=== PATIENT | female | born 1990 | race Caucasian/White ===

== ENCOUNTER 2018-03-07 08:00 | Inpatient (IN) ==
[2018-03-07] MEDS ORDERED: miSOPROStol 25 MCG TABLET PO PRN (08:10)
[2018-03-07] MEDS ORDERED: Ondansetron 4 MG/2 ML VIAL IVP PRN (08:10)
[2018-03-07] MEDS ORDERED: Naloxone 0.4 MG/ML INJ IVP PRN (08:10)
[2018-03-07] MEDS ORDERED: Famotidine 20 MG/2 ML VIAL IVP PRN (08:10)
[2018-03-07] MEDS ORDERED: Ringers Solution, Lactated 1,000 ML IVC SCH (08:15)
[2018-03-07] MEDS ORDERED: *HR* Labetalol 20 MG/4 ML SYRINGE IVP ONE ×5 (08:31→18:52)
[2018-03-07 09:10] LABS: Basophils % 0.3 %; Eosinophils # 0.1 K/mcL (0.0-0.6); Eosinophils % 0.6 %; Hematocrit 37.6 % (35.3-44.9); Hemoglobin 12.4 g/dL (11.5-15.4); Immature Granulocytes % 0.5 % (0-4); Lymphocytes # 2.5 K/mcL (0.6-4.6); Lymphocytes % 22.5 %; Mean Corpuscular Hemoglobin 26.4 pg (28.0-33.3); Mean Platelet Volume 12.2 fL (9.4-12.4); Monocytes # 0.4 K/mcL (0.0-1.3); Monocytes % 3.9 %; Neutrophils # 7.9 K/mcL (1.6-8.9); Platelet Count 196 K/mcL (140-400); Red Cell Distribution Width 14.8 % (11.5-14.5); Segmented Neutrophils % 72.2 %
[2018-03-07 09:28] LABS: Protein/Creatinine Ratio,Urine 0.66 mg/mg (0.00-0.20)
[2018-03-07 09:29] LABS: Alanine Aminotransferase 7 Units/L (7-52); Aspartate Amino Transferase 12 Units/L (13-39); BUN/Creatinine Ratio 13 (6-26); Blood Urea Nitrogen 6 mg/dL (6-20); Lactate Dehydrogenase 169 Units/L (140-271); Uric Acid 3.6 mg/dL (2.3-7.6); eGFR For Non-African Americans > 60 (> 60)
[2018-03-07 09:50] LABS: Amphetamine Screen,Urine Negative ng/mL (Cutoff=1000); Barbiturate Screen,Urine Negative ng/mL (Cutoff=200); Benzodiazepines Screen,Urine Negative ng/mL (Cutoff=200); Cannabinoid Screen,Urine Negative ng/mL (Cutoff = 50); Cocaine Screen,Urine Negative ng/mL (Cutoff= 300); Opiate Screen,Urine Negative ng/mL (Cutoff=300); Phencyclidine Screen,Urine Negative ng/mL (Cutoff=25)
--- NOTE | 2018-03-07 13:03 | OB/GYN History & Physical ---
Date of Encounter: 03/07/18 Time of Encounter: 13:01 Assessment and Plan (1) 39 weeks gestation of Current visit: Yes Status: Acute (2) Chronic hypertension affecting Current visit: Yes Status: Acute Pt's bp's are markedly elevated today, no s/sx's of PIH. PIH labs are normal. Will cover BP's as needed. History of Present Illness Chief complaint: Here for induction of labor HPI: Ms. Oliveira is a 27 year old female female presents for induction of labor. On arrival she reports irregular uc's, no vb or lof. She has h/o chronic HTN since age 17. On arrival she denies PIH sx's of headache, scotomata, RUQ pain or n/v or swelling. Past Med Surg Social Fam HX - Past Medical History Source: patient, old records reviewed Medical history: hypertension, migraine Additional medical history: atherosclerosis of renal artery, OCD, impaired fasting glucose, vitamin D deficiency Psychiatric history: other - Past Surgical History Additional surgical history: DNC - Social History Smoking Status: Never smoker Smokeless Tobacco Status: No Alcohol use: none Drug use: none - Family History Mother Name: Fern Herrera Age: 43 Family Member Ethnicity: Non- Living Status: Still Living Hx Family Cardiac Disorders: Yes Hx Family Respiratory Disorders: No Hx Family Cancer: No Hx Family GI Disorders: No Hx Family Genitourinary Disorders: No Hx Family Endocrine Disorder: No Hx Family Musculoskeletal Disorders: No Hx Family Neuromuscular Disorders: No Hx Family Neurologic Disorders: No Hx Family HEENT Disorders: No Hx Family Autoimmune Disorders: No Hx Family Reproductive Disorders: No Hx Family Psychosocial Disorders: No Hx Family Medical Disorders: No Obstetrical History - Pregnancies : 2 Medications and Allergies Labetalol [Trandate] 100 mg PO BID #28 tablet 07/23/17 [Rx] One Daily Tablet 1 tab PO DAILY 03/07/18 [History] Allergy/AdvReac Type Severity Reaction Status Date / Time No Known Allergies Allergy Verified 04/22/16 21:06 Exam - Constitutional Constitutional: well developed, well nourished - HEENT HEENT: EOMI, PERRL - Neck Neck exam: full ROM - Lungs Respiratory exam: accessory muscle use - Cardiovascular Cardiovascular exam: RRR - Abdomen Abdomen: Present: gravid, non tender - Extremities Deep Tendon Reflex Grade: 2+ Normal - Cervix Dilation: 2 Effacement: 70 Station: -2 - Uterus Uterus exam: Present: enlarged Results Result Diagrams: 03/07/18 08:35 03/07/18 08:35 Abnormal lab results MCV 80.0 fL (83.0-100.0) L 03/07/18 08:35 MCH 26.4 pg (28.0-33.3) L 03/07/18 08:35 RDW 14.8 % (11.5-14.5) H 03/07/18 08:35 Creatinine 0.46 mg/dL (0.60-1.20) L 03/07/18 08:35 AST 12 Units/L (13-39) L 03/07/18 08:35 Protein/Creatinin Ratio 0.66 mg/mg (0.00-0.20) H 03/07/18 08:35 Urine Total Protein 99 mg/dL (1-14) H 03/07/18 08:35 All other labs normal. - VTE Reasons for not Prescribing Prophylaxis: Treatment not Indicated - Low risk for VTE
[2018-03-07] MEDS: *HR* Nalbuphine 10 MG/ML AMPUL IVP PRN ×2 (15:48→17:48)
[2018-03-07] MEDS ORDERED: Oxytocin 20 units/ LR 1000 mL 20 UNIT/1,000 ML BAG IVC SCH (16:45)
[2018-03-07] MEDS ORDERED: Lidocaine -MPF 1% 5 ML AMPUL ONE (19:11)
[2018-03-07] MEDS ORDERED: Epidural Premix (fent/bupiv) 110 ML EP SCH (19:15)
--- NOTE | 2018-03-07 20:26 | Anesthesia Evaluation PreOp ---
Date of Encounter: 03/07/18 Time of Encounter: 19:15 - Past History Planned Operation: keiry Cardiac History: Denies any Significant Hx, HTN (chronic) Pulmonary History: Denies Any Significant HX FURNACE HELPER History: Denies Any Significant HX Other Medical History: Denies Any Significant HX Anesthesia History: No Prior Anesthetic Complications : Yes Test: Positive Alcohol Use: none Drug use: none Medications and Allergies Labetalol [Trandate] 100 mg PO BID #28 tablet 07/23/17 [Rx] One Daily Tablet 1 tab PO DAILY 03/07/18 [History] Allergy/AdvReac Type Severity Reaction Status Date / Time No Known Allergies Allergy Verified 04/22/16 21:06 - Meds/Allergy Pre-op Review Medications Reviewed: Yes Allergies Reviewed: Yes Beta Blockers on Current Med List: Yes (03/07/18 1800) Anesthesia Results - Labs 03/07/18 08:35 03/07/18 08:35 Anesthesia Exam 218/102 118 16 Height: 65 Weight: 219 NPO (# of Hours): mn Pain Scale: 7 - HEENT Pupil (Motor): Pupils equal Mallampati: II Teeth: Normal Oral Opening: Greater than 3 - FURNACE HELPER LOC: Oriented FURNACE HELPER Motor: Normal RUE, Normal LUE, Normal RLE, Normal LLE, Normal Face FURNACE HELPER Sensory: Normal: RUE, LUE, RLE, LLE, Face - Cardiac Rhythm: Regular Murmur: None JVD: No Carotid Bruit: No - Pulmonary Breath Sounds: bilateral Clear Respiratory Effort: Symmetrical Anesthesia Assess/Plan ASA Score: 2 Level of consciousness: Cooperative Anesthetic Plan: Epidural Autologous Blood: Yes Monitoring Plan: Standard Monitors
--- NOTE | 2018-03-07 20:31 | Anesthesia Procedures ---
Addendum entered and electronically signed by Mary Jones CRNA 03/08/18 06:44: Delivery Time: 23:41 Original Note: Date of Encounter: 03/07/18 Time of Encounter: 19:15 Procedures: Anesthesia - Epidural/Spinal Patient ID/Chart reviewed: Yes Patient examined: Yes OB Eval: Gestational age: 39 OB Eval: : 1 OB Eval: Hx Para: 0 OB Eval: Dilated at (cm): 4 OB Eval: Contractions: Non-stressed pattern Consent Obtained: Yes Site Prep: Aseptic Technique, Sterile prep and drape, Povidone-Iodine 1% Patient position: upright Amount of Local Anesthetic used: 3 Touhy Needle Gauge: 18 Touhy Needle Depth (cm): 7 Catheter Depth at Skin (cm): 9 Test Dose (1.5% Lido + Epi): Volume given (mls): 3 Test Dose Result: Negative Infusion Rate (mls/hr): [address]: Tegaderm Interspace Used: L4-L5 Loss of Resistance (NICOLE): Yes Blood: No CSF: No Paresthesia: No Vitals + FHT's: VSS FHTS throughout see nursing notes.
--- NOTE | 2018-03-08 00:12 | OB/GYN Procedure Note ---
Delivery - Delivery Date: 03/07/18 Provider: Neo Mistry Intrapartum events: none Delivery induction: misoprostol Delivery monitor: external FHT, external uterine Anesthesia: epidural Quantitated Blood Loss: 150 - (s) A Delivery Date: 03/07/18 Infant Delivery Time: 23:41 Presentation: vertex Position: BUTCH Route of delivery: Gender: Female Viability: Viable Pounds: 6 Ounces: 11 at 1 minute: 9 at 5 mins: 9 Specimens collected: cord blood Placenta: spontaneous Cord: 3 umbilical vessels - Repair Episiotomy: none Laceration Description: Labial, Superficial - Complications Delivery complications: none - Disposition Mom disposition: stable in LDR [place] disposition: stable in LDR - Comments Comments: Pt s/p of liveborn female 6lb 11 oz with apgars 9 at 1 in and 9 at 5 min. Very small right labial tear at hymenal ring repaired under epidural anesthesia with a single 3-0 Vircryl.
[2018-03-08] MEDS ORDERED: Measles/Mumps/Rubella Vacc 0.5 ML VIAL SQ PRN (01:48)
[2018-03-08] MEDS ORDERED: Rho Immune Globulin 1,500 UNIT SYRINGE IM PRN (01:48)
[2018-03-08] MEDS ORDERED: Acetaminophen 325 MG TABLET PO PRN (01:48)
[2018-03-08] MEDS ORDERED: Oxytocin 20 units/ LR 1000 mL 20 UNIT/1,000 ML BAG IVC SCH (01:48)
[2018-03-08 07:09] LABS: Basophils % 0.3 %; Eosinophils % 0.2 %; Hematocrit 30.9 % (35.3-44.9); Immature Granulocytes % 0.5 % (0-4); Lymphocytes # 2.7 K/mcL (0.6-4.6); Lymphocytes % 17.4 %; Mean Corpuscular HGB Conc 33.3 g/dL (31.6-35.5); Mean Corpuscular Hemoglobin 26.9 pg (28.0-33.3); Mean Corpuscular Volume 80.7 fL (83.0-100.0); Mean Platelet Volume 12.3 fL (9.4-12.4); Monocytes # 0.8 K/mcL (0.0-1.3); Monocytes % 5.4 %; Neutrophils # 11.7 K/mcL (1.6-8.9); Platelet Count 182 K/mcL (140-400); Red Blood Count 3.83 M/mcL (3.82-4.97); Red Cell Distribution Width 15.4 % (11.5-14.5); Segmented Neutrophils % 76.2 %
[2018-03-08 07:10] LABS: Hemoglobin 10.3 g/dL (11.5-15.4)
[2018-03-08] MEDS: Prenatal Vit/FA 1 EACH TABLET PO SCH (07:55)
[2018-03-08] MEDS: Ibuprofen 600 MG TABLET PO PRN ×2 (10:53→16:42)
--- NOTE | 2018-03-08 11:45 | OB/GYN Progress Note ---
Date of Encounter: 03/08/18 Time of Encounter: 11:43 - Assessment and Plan (1) Vaginal delivery Current Visit: Yes Status: Acute Continue routine care discharge home tomorrow Subjective - Subjective Principal diagnosis: day 1 Interval history: Patient doing well. Denies any pain at this time. Patient is in bed holding at this time. Patient reports: appetite normal, voiding normally, pain well controlled, ambulating normally : doing well, bottle feeding Objective - Latest Vital Signs Latest vital signs: Vital Signs Temp Pulse Resp BP Pulse Ox 03/08/18 07:52 98.6 F 109 16 139/98 99 03/08/18 06:15 98.1 F 119 20 119/81 98 03/08/18 04:21 98.2 F 111 16 133/91 96 03/08/18 03:15 97.9 F 107 20 152/104 98 03/08/18 02:10 98.1 F 109 18 149/101 98 Intake and Output 03/07/18 03/08/18 03/08/18 23:59 07:59 15:59 Intake Total 250 / 250 Output Total 900 / 900 250 / 250 Balance -900 / -900 0 / 0 Intake: Oral 250 / 250 Output: Urine 900 / 900 250 / 250 Other: Meal Breakfast Percent of Meal Consumed 0% Weight 97.4 kg Patient Weight 03/08/18 23:59 Weight 97.4 kg - Exam Lungs: bilateral: normal Chest: Normal S1, Normal S2 Extremities: Present: normal Abdomen: Present: normal appearance, soft Uterus: Present: normal, firm Uterus Position: At Umbilicus, Midline - Labs Labs: Laboratory Results - last 24 hr 03/08/18 06:49 WBC 15.3 H RBC 3.83 Hgb 10.3 L D Hct 30.9 L MCV 80.7 L MCH 26.9 L MCHC 33.3 RDW 15.4 H Plt Count 182 MPV 12.3 Immature Gran % 0.5 Seg Neutrophils % 76.2 Lymphocytes % 17.4 Monocytes % 5.4 Eosinophils % 0.2 Basophils % 0.3 Neutrophils # 11.7 H Lymphocytes # 2.7 Monocytes # 0.8 Eosinophils # 0.0 Basophils # 0.0
[2018-03-09] MEDS: Prenatal Vit/FA 1 EACH TABLET PO SCH (08:01)
[2018-03-09] MEDS: Ibuprofen 600 MG TABLET PO PRN (08:01)
[2018-03-09 08:19] VITALS: BP 139/102
--- NOTE | 2018-03-09 09:43 | Discharge Summary ---
Date of Encounter: 03/09/18 Time of Encounter: 09:38 - Discharge Diagnosis (1) anemia Priority: Secondary Status: Acute Comments: Continue iron supplementation for 2 months (2) Vaginal delivery Priority: Primary Status: Acute Comments: Feeling well Tolerating regular diet Pain well-controlled with by mouth pain meds Ambulating independently Voiding independently Lochia light Passing flatus, no BM yet Vital signs stable Discharge home today - Discharge Medications Prescriptions: Ibuprofen [Motrin] 600 mg PO Q6HR PRN #30 tablet PRN Reason: Mild To Moderate Pain Docusate [Colace] 100 mg PO BID #60 capsule Ferrous Sulfate 325 mg PO DAILY #30 tablet Home Medications: Labetalol [Trandate] 100 mg PO BID #28 tablet 07/23/17 [Rx] One Daily Tablet 1 tab PO DAILY 03/07/18 [History] Acetaminophen [Tylenol] 650 mg PO Q6HR PRN tablet 03/09/18 [Rx] Docusate [Colace] 100 mg PO BID #60 capsule 03/09/18 [Rx] Ferrous Sulfate 325 mg PO DAILY #30 tablet 03/09/18 [Rx] Ibuprofen [Motrin] 600 mg PO Q6HR PRN #30 tablet 03/09/18 [Rx] Allergies/Adverse Reactions: Allergy/AdvReac Type Severity Reaction Status Date / Time No Known Allergies Allergy Verified 04/22/16 21:06 Data Procedures and tests throughout hospitalization: Laboratory Tests 03/07/18 03/07/18 03/07/18 08:35 08:35 08:35 WBC 10.9 RBC 4.70 Hgb 12.4 Hct 37.6 MCV 80.0 L MCH 26.4 L MCHC 33.0 RDW 14.8 H Plt Count 196 MPV 12.2 Immature Gran % 0.5 Seg Neutrophils % 72.2 Lymphocytes % 22.5 Monocytes % 3.9 Eosinophils % 0.6 Basophils % 0.3 Neutrophils # 7.9 Lymphocytes # 2.5 Monocytes # 0.4 Eosinophils # 0.1 Basophils # 0.0 BUN 6 Creatinine 0.46 L Est GFR ( Amer) > 60 Est GFR (Non-Af Amer) > 60 BUN/Creatinine Ratio 13 Uric Acid 3.6 AST 12 L ALT 7 Lactate Dehydrogenase 169 Urine Creatinine Protein/Creatinin Ratio Urine Total Protein Urine Opiates Screen Negative Ur Barbiturates Screen Negative Ur Phencyclidine Scrn Negative Ur Amphetamines Screen Negative U Benzodiazepines Scrn Negative Urine Cocaine Screen Negative U Marijuana (THC) Screen Negative Ur Drug Screen Interp See Below 03/07/18 03/08/18 08:35 06:49 WBC 15.3 H RBC 3.83 Hgb 10.3 L D Hct 30.9 L MCV 80.7 L MCH 26.9 L MCHC 33.3 RDW 15.4 H Plt Count 182 MPV 12.3 Immature Gran % 0.5 Seg Neutrophils % 76.2 Lymphocytes % 17.4 Monocytes % 5.4 Eosinophils % 0.2 Basophils % 0.3 Neutrophils # 11.7 H Lymphocytes # 2.7 Monocytes # 0.8 Eosinophils # 0.0 Basophils # 0.0 BUN Creatinine Est GFR ( Amer) Est GFR (Non-Af Amer) BUN/Creatinine Ratio Uric Acid AST ALT Lactate Dehydrogenase Urine Creatinine 149 Protein/Creatinin Ratio 0.66 H Urine Total Protein 99 H Urine Opiates Screen Ur Barbiturates Screen Ur Phencyclidine Scrn Ur Amphetamines Screen U Benzodiazepines Scrn Urine Cocaine Screen U Marijuana (THC) Screen Ur Drug Screen Interp Date of admission: 03/07/18 08:09 Consults: 03/08/18 01:48 Consult to Industrial Roof Plumber [CONS] Routine Comment: Vaginal delivery, consult needed Discharging clinician: Sue Ayon Anticipated date of discharge: 03/09/18 - Patient Status Disposition: Home, Self-Care Condition: Good Functional capacity at discharge: independent ambulation Overall status at discharge: patient is progressing back to baseline - Discharge Instructions Follow Up With: Neo Mistry MD [Partnered Physician] - - Diet and Activity Activity: increase activity as tolerated Diet: regular diet Hospital Course Reason for admission: induction of labor, IUP at term Delivery: Episiotomy: none Laceration: other (right labial) Other procedures: none complications: none Discharge diagnosis: IUP at term delivered baby: female Time Attestation: Total time spent providing and/or coordinating discharge services: Exam - Constitutional Vitals: Temp Pulse Resp BP Pulse Ox 97.5 F L 91 16 139/102 97 03/09/18 07:30 03/09/18 07:31 03/09/18 07:30 03/09/18 07:31 12/03/18 03:00 General appearance IM: A&O X 3 - Respiratory Respiratory exam: Present: CTAB - Cardiovascular Cardiovascular exam IM: Present: RRR, +S1, +S2 - GI/Abdominal GI/Abdominal exam IM: normal bowel sounds, no peritoneal signs - Rectal Rectal exam: deferred - Uterine Tone: Firm Uterus Position: 2 Fingers Below Umbilicus, Midline - Extremities Exam Extremities exam IM: Present: normal capillary refill, normal inspection, radial pulses palpable and symmetrical - Neurological Exam Neurological exam: alert, CN II-XII intact, normal gait, oriented X3, reflexes normal, no focal deficits, strengths equal and symetr throughout - Psychiatric Additional comments: Patient denies history of depression and anxiety. Signs and symptoms of depression discussed with patient and she verbalizes understanding of when to seek help.
== END 2018-03-09 10:55 | disposition home or self-care (01) | DRG 560 ==
LOC: 1NENULAB 08:09 → 1NENUOBS 03-08 01:46
PROVIDERS: ADMIT Obstetrics & Gynecology; ATTEND Obstetrics & Gynecology